=== PATIENT | female | born 2005 | race Caucasian/White ===

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

== ENCOUNTER 2025-07-09 04:01 | Emergency (ER) | payer OTHER, SELFPAY ==
[2025-07-09 04:03] VITALS: BP 128/88
[2025-07-09 04:35] LABS: COVID-19 Antigen Negative (Negative)
--- NOTE | 2025-07-09 05:05 | ED.GENMED ---
History of Present Illness
General
Chief Complaint: Cold/Flu/URI Symptoms
Source: patient
Time Seen by Provider: 07/09/25 04:50
History of Present Illness
History of Present Illness:
19-year-old female presents to the emergency room complaining of headache, facial pain, nasal congestion. Symptoms been present past couple days. Patient denies myalgias. She is concerned she has a bad sinus infection. No nausea or vomiting.
She is tolerating oral intake. Patient took Claritin as well as ibuprofen at about 9 PM last night.
Phy Exam
Physical Exam
Physical Exam:
General: Awake, Alert, Oriented X3. No acute distress.
Vitals: unremarkable
Head: Atraumatic
Face: Tenderness of her caution over bilateral sinuses
Eyes: Pupils equal, EOMI
Throat: Airway intact, no exudates
Neck: Trachea midline
Lungs: Clear and equal b/l
Heart: Regular rate, no murmurs
Neuro: Nonfocal
Skin: Warm, dry, no rash
Extremities: pulses equal b/l, no edema
Course
Orders/Labs/Results
Orders:
Orders
07/09/25 04:09
COVID-19 Antigen Urgent
Source: Nasal Swab
Influenza A+B Rapid Molecular Urgent
[facility] Source: Nasal Swab
Specimen Description:
07/09/25 05:04
Ketorolac [Toradol] 30 mg IM NOW STA
07/09/25 05:22
Pseudoephedrine [Sudafed] 30 mg PO NOW STA
Vital Signs
Initial and Last Documented VS:
Initial Vital Signs
Temp Pulse Resp BP Pulse Ox
97.9 F 102 20 128/88 98
07/09/25 04:03 07/09/25 04:03 07/09/25 04:03 07/09/25 04:03 07/09/25 04:03
Last Documented Vital Signs
Temp Pulse Resp BP Pulse Ox
97.9 F 99 16 104/50 100
07/09/25 04:03 07/09/25 05:50 07/09/25 05:50 07/09/25 05:50 07/09/25 05:50
MDM/Problems Addressed
Differential Diagnosis Includes:
Sinusitis, COVID, influenza
MDM/Problems Addressed:
Patient's influenza test is positive. Conservative manage with NSAIDs, decongestants. Mom inquired about Tamiflu. Explained I feel like it is not likely to be useful in a 19-year-old without any significant medical problems. More likely to cause
diarrhea then it is to significantly improve her symptoms.
*Pulse Oximetry
SaO2: 98
Oxygen Mode of Delivery: Room air
Patient hypoxic: no
*Critical Care Note
Total Time (30-74mins, 75-104mins- exclusive of procedures): Not Applicable
ED Attending Note
-
Portions of this chart may have been created with voice recognition software.� Occasional wrong word or��sound alike� substitutions may have occurred due to the inherent limitations of voice recognition software.
Discharge Plan
Departure
Patient Disposition: Home (Routine Discharge)
Date of Disposition: 07/09/25
Time of Disposition: 05:08
Patient with high blood pressure during this ER visit?: No
Condition: Good
Discharge Problem:
Influenza A
Instructions: Flu in adults - ED (DC)
Prescriptions:
No Action
No Meds [No Current Medications]
0
Activity Restrictions/Additional Instructions:
You can take 600mg of ibuprofen every 6 hours as well as Tylenol 1000mg. I would also recommend taking an [id number]-[id number]-[id number] decongestant such as Sudafed 30 mg.
Interventions
Interventions:
*General Assessment Last Done: 07/09/25 04:59
*Neglect/Abuse Screening Last Done: 07/09/25 04:03
*ED COVID-19 Vaccine History Last Done: 07/09/25 04:59
*ED Influenza Vaccine History Last Done: 07/09/25 04:59
[facility] Risk Assessment Tool Last Done: 07/09/25 05:00
*Risk Screen - Suicide (C-SSRS) Last Done: 07/09/25 04:06
*Nursing Disposition Last Done: 07/09/25 05:50
ED- Pulmonary Assessment Last Done: 07/09/25 04:59
Discharge Date and Time
Discharge Date/Time: 07/09/25 05:50
Print Language: [place]
[2025-07-09] MEDS: TORADOL 30 MG IM (05:37)
[2025-07-09] MEDS: SUDAFED 30 MG PO (05:37)
[2025-07-09 05:50] VITALS: BP 104/50
== END 2025-07-09 05:50 | disposition home or self-care (01) ==
LOC: EMR 04:01
PROVIDERS: EMERGENCY PHYSICIAN Emergency Medicine; FAMILY PHYSICIAN Pediatrics
DX: J10.1 Influenza due to other identified influenza virus with other respiratory manifestations (principal)
CPT/HCPCS: 99284; 96372; 87502; 87811